=== PATIENT | male | born 1950 | race Caucasian/White ===

== ENCOUNTER 2019-02-12 19:22 | Emergency (ER) | payer MEDICARE, BC ==
--- NOTE | 2019-02-12 19:36 | EDM.PDOC ---
ED HPI GENERAL MEDICAL PROBLEM - General Chief Complaint: Cardiovascular Problem Stated Complaint: HEART BEAT IRREGULAR Time Seen by Provider: 02/12/19 19:31 Source of Information: Reports: Patient, RN Notes Reviewed History Limitations: Reports: No Limitations - History of Present Illness INITIAL COMMENTS - FREE TEXT/NARRATIVE: Patient is a 68-year-old male who presents to the ED for feelings of irregular heartbeat. The patient notes this has been going on for around one month now, he notes that he was evaluated in the [facility] one week, and had EKG done and demonstrated no acute ischemia or abnormalities at that time. He states this has been intermittent, and not constant. He states last night he had he had feelings of his heart fluttering in his chest, off and on for 5 hours last night. He notes a few "hard pounds" in his chest that he was quite aware of. He states that these palpitations relieved themselves, he does not take any actions to try to relieve them himself. He notes he does get sweaty at times with these episodes, and does feel some shortness of breath. He states he feels some mild chest discomfort with these however he is not having any pain. He notes that he feels a sense of impending doom, but does not have any feelings of an elephant sitting on his chest. The patient notes that he does have increased anxiety in his life about retiring. He did take a regular Brennan aspirin last night for management of this, he did not seek evaluation last night for this. The patient notes that he had an episode again today, so they brought him to the ER for evaluation. Of note he states that the provider that saw him one week ago is ordering an event monitor to be placed for 1 month to evaluate for arrhythmia. Patient states he drinks 1 cup of coffee per day, he used to smoke and chew tobacco but he has been quit for 30 years, and he states he is very little alcohol on a very rare basis. He takes losartan 25 mg daily. The patient denies any sort of history of MIs or stents that he has had , but the relates he has a positive family history and his father and his brother. - Related Data Allergies Allergy/AdvReac Type Severity Reaction Status Date / Time No Known Allergies Allergy Verified 02/12/19 19:32 Home Meds: Home Meds LORazepam 0.5 mg PO Q4H PRN #12 tab 02/12/19 [Rx] Losartan [Cozaar] 25 mg PO DAILY 02/12/19 [History] Pumpkin Seed Oil/Saw Pittsford [Saw [place]ford 160 mg Softgel] 160 mg PO DAILY 07/29 [History] ED ROS GENERAL - Review of Systems Review Of Systems: See Below Constitutional: Reports: Diaphoresis (with episodes). Denies: Fever, Chills, Malaise HEENT: Reports: No Symptoms Respiratory: Reports: Shortness of Breath (with episodes) Cardiovascular: Reports: Chest Pain (chest discomfort), Blood Pressure Problem ( hx/o high BP), Palpitations. Denies: Dyspnea on Exertion, Lightheadedness, Syncope Endocrine: Reports: No Symptoms GI/Abdominal: Denies: Nausea, Vomiting : Reports: No Symptoms Musculoskeletal: Reports: No Symptoms Skin: Reports: No Symptoms Neurological: Reports: No Symptoms Psychiatric: Reports: No Symptoms Hematologic/Lymphatic: Reports: No Symptoms ED EXAM, GENERAL - Physical Exam Exam: See Below Exam Limited By: No Limitations General Appearance: Alert, WD/WN, No Apparent Distress Throat/Mouth: Normal Inspection, Normal Lips, Normal Teeth, Normal Gums, Normal Oropharynx, Normal Voice, No Airway Compromise Head: Atraumatic, Normocephalic Neck: Normal Inspection Respiratory/Chest: No Respiratory Distress, Lungs Clear, Normal Breath Sounds, No Accessory Muscle Use, Chest Non-Tender Cardiovascular: Normal Peripheral Pulses, Regular Rate, Rhythm, No Murmur Peripheral Pulses: 3+: Radial (L), Radial (R) GI/Abdominal: Normal Bowel Sounds, Soft, Non-Tender, No Distention, No Mass Extremities: Normal Inspection, Normal Capillary Refill Neurological: Alert, Oriented, Normal Cognition, No Motor/Sensory Deficits Psychiatric: Normal Affect, Normal Mood Skin Exam: Warm, Dry, Intact, Normal Color, No Rash EKG INTERPRETATION EKG Date: 02/12/19 Time: 19:43 Rhythm: NSR Rate (Beats/Min): 87 [place]ble: Normal P-Wave: Present QRS: Normal ST-T: Normal QT: Normal Comparison: NA - No Prior EKG EKG Interpretation Comments: Reviewed by myself and Dr. Paco Monzon. No acute arrhythmia or ischemia appreciated. Course - Vital Signs Last Recorded V/S: Last Vital Signs Temp 97.4 F 02/12/19 19:28 Pulse 91 02/12/19 19:28 Resp 18 02/12/19 19:28 BP 173/89 H 02/12/19 19:28 Pulse Ox 99 02/12/19 19:28 - Orders/Labs/Meds Orders: Active Orders 24 hr Category Date Time Status EKG Documentation Completion [RC] STAT Care 02/12/19 19:34 Ordered Chest 1V Frontal [CR] Stat Exams 02/12/19 19:34 Ordered Labs: Laboratory Tests 02/12/19 02/12/19 02/12/19 Range/Units 19:49 19:49 19:49 WBC 6.74 (4.23-9.07) K/mm3 RBC 4.87 (4.63-6.08) M/mm3 Hgb 14.7 (13.7-17.5) gm/dl Hct 42.4 (40.1-51.0) % MCV 87.1 (79.0-92.2) fl MCH 30.2 (25.7-32.2) pg MCHC 34.7 (32.2-35.5) g/dl RDW Std Deviation 45.7 H (35.1-43.9) fL Plt Count 201 (163-337) K/mm3 MPV 10.8 (9.4-12.3) fl Neutrophils % (Manual) 57 (40-60) % Band Neutrophils % 1 (0-10) % Lymphocytes % (Manual) 35 (20-40) % Atypical Lymphs % 0 % Monocytes % (Manual) 5 (2-10) % Eosinophils % (Manual) 2 (0.8-7.0) % Basophils % (Manual) 0 L (0.2-1.2) Platelet Estimate Adequate RBC Morph Comment Normal PT 10.5 (9.7-12.0) SECONDS INR 0.96 APTT 27 (22-31) SECONDS Sodium 141 (136-145) mEq/L Potassium 4.0 (3.5-5.1) mEq/L Chloride 106 (98-107) mEq/L Carbon Dioxide 26 (21-32) mEq/L Anion Gap 13.0 (5-15) BUN 30 H (7-18) mg/dL Creatinine 1.0 (0.7-1.3) mg/dL Est Cr Clr Drug Dosing 69.35 mL/min Estimated GFR (MDRD) > 60 (>60) mL/min BUN/Creatinine Ratio 30.0 H (14-18) Glucose 122 H (80-115) mg/dL Calcium 9.3 (8.5-10.1) mg/dL Magnesium 1.9 (1.8-2.4) mg/dl Total Bilirubin 0.3 (0.2-1.0) mg/dL AST 17 (15-37) U/L ALT 51 (16-63) U/L Alkaline Phosphatase 74 (46-116) U/L Troponin I < 0.017 (0.00-0.056) ng/mL NT-Pro-B Natriuret Pep (0-125) pg/mL Total Protein 7.2 (6.4-8.2) g/dl Albumin 3.9 (3.4-5.0) g/dl Globulin 3.3 gm/dL Albumin/Globulin Ratio 1.2 (1-2) 02/12/19 Range/Units 19:49 WBC (4.23-9.07) K/mm3 RBC (4.63-6.08) M/mm3 Hgb (13.7-17.5) gm/dl Hct (40.1-51.0) % MCV (79.0-92.2) fl MCH (25.7-32.2) pg MCHC (32.2-35.5) g/dl RDW Std Deviation (35.1-43.9) fL Plt Count (163-337) K/mm3 MPV (9.4-12.3) fl Neutrophils % (Manual) (40-60) % Band Neutrophils % (0-10) % Lymphocytes % (Manual) (20-40) % Atypical Lymphs % % Monocytes % (Manual) (2-10) % Eosinophils % (Manual) (0.8-7.0) % Basophils % (Manual) (0.2-1.2) Platelet Estimate RBC Morph Comment PT (9.7-12.0) SECONDS INR APTT (22-31) SECONDS Sodium (136-145) mEq/L Potassium (3.5-5.1) mEq/L Chloride (98-107) mEq/L Carbon Dioxide (21-32) mEq/L Anion Gap (5-15) BUN (7-18) mg/dL Creatinine (0.7-1.3) mg/dL Est Cr Clr Drug Dosing mL/min Estimated GFR (MDRD) (>60) mL/min BUN/Creatinine Ratio (14-18) Glucose (80-115) mg/dL Calcium (8.5-10.1) mg/dL Magnesium (1.8-2.4) mg/dl Total Bilirubin (0.2-1.0) mg/dL AST (15-37) U/L ALT (16-63) U/L Alkaline Phosphatase (46-116) U/L Troponin I (0.00-0.056) ng/mL NT-Pro-B Natriuret Pep 32 (0-125) pg/mL Total Protein (6.4-8.2) g/dl Albumin (3.4-5.0) g/dl Globulin gm/dL Albumin/Globulin Ratio (1-2) - Re-Assessments/Exams Free Text/Narrative Re-Assessment/Exam: 02/12/19 19:40 Patient presents to the ED for the evaluation of palpitations. I did order an EKG, and other labs to rule out cardiac ischemia. I did make it noted the patient that it is pertinent he gets the event monitor ordered by [facility], so that he may rule out cardiac arrhythmias. As the patient is not having any sort of arrhythmia at [facility]'s visit. He is understanding of this. He was wondering about the anxiety portion, and if his evaluation is good tonight, I would not mind giving him a few tablets of Ativan for feelings of anxiety. 02/12/19 20:37 Chest x-ray shows no acute abnormalities, this was reviewed by myself and Dr. Washington Monzon. Labs are back, and no acute abnormalities are appreciated at [facility]' s visit. His troponin is negative at this time. Patient will be discharged home with general recommendations and a prescription for 0.5 mg Ativan PO Q4H PRN for anxiety. Departure - Departure Time of Disposition: 20:39 Disposition: Home, Self-Care 01 Condition: Fair Clinical Impression: Heart palpitations Prescriptions: LORazepam 0.5 mg PO Q4H PRN #12 tab PRN Reason: Anxiety Instructions: Palpitations, [id number], Ambulatory Cardiac Monitoring Referrals: PCP,Not In Area [Primary Care Provider] - Forms: ED Department Discharge Additional Instructions: You were evaluated in the ER today for your irregular heart rhythm. Unfortunately you're not experiencing symptoms that tonight ER visit, however your cardiac workup was normal, so this is reassuring. Recommend that you follow up with Hannah Diaz and go forward with the heart monitor that she has already ordered for you, this should help evaluate your heart rhythm 03/12 to see if you are in fact having any sort of arrhythmias. You were given a few tablets of Ativan, 0.5 mg, please take 1 tab PO Q4H PRN for feelings of anxiety. If this does help relieve some of your feelings, recommend that you follow up with your primary care physician for continuation of this medication. You may continue to take low-dose aspirin daily for general heart health. If your heart arrhythmia should board turner to be atrial fibrillation, this would help to thin the blood and potentially guard against clots, and possibly reduce your risk for any sequelae that may develop from this. Please return to the ED if your symptoms change or worsen. - My Orders Last 24 Hours: My Active Orders 02/12/19 19:34 EKG Documentation Completion [RC] STAT Chest 1V Frontal [CR] Stat - Assessment/Plan Last 24 Hours: My Active Orders 02/12/19 19:34 EKG Documentation Completion [RC] STAT Chest 1V Frontal [CR] Stat
--- NOTE | 2019-02-13 06:51 | CR ---
Chest: Portable view of the chest was obtained. Comparison: No prior chest x-ray. Heart size and mediastinum are within normal limits for portable technique. Lungs are clear with no acute parenchymal change. Bony structures are grossly intact. Impression: 1. Nothing acute is appreciated on portable chest x-ray. Diagnostic code #1
== END 2019-02-12 21:00 | disposition home or self-care (01) ==
LOC: JD.ED 19:22
DX: R00.2 Palpitations (principal); I10 Essential (primary) hypertension; Z79.899 Other long term (current) drug therapy; Z87.891 Personal history of nicotine dependence
CPT/HCPCS: 36415; 71045; 71045-26; 80053; 83735; 83880; 84484; 85007; 85027; 85610; 85730; 93005; 99285-25

== ENCOUNTER 2024-04-30 11:32 | Day surgery (SDC) | payer MEDICARE, BC ==
[2024-04-30] MEDS: Polymyxin B/Trimethoprim 10 ML Bottle EYERT SCH (12:21)
[2024-04-30] MEDS: Brimonidine 0.2% Ophth Soln 5 ML Bottle EYERT SCH (12:26)
[2024-04-30] MEDS: Phenylephrine 2.5% Ophth Soln 2 ML Bot EYERT SCH (12:32)
[2024-04-30] MEDS: Tropicamide 1% Ophth Soln 3 ML Bottle EYERT SCH (12:36)
[2024-04-30] MEDS: Tetracaine HCl/PF 0.5% 4 ML Bottle EYEBOTH SCH (13:34)
[2024-04-30] MEDS: Lidocaine 1% PF 2 ML SDV INJECT SCH (14:10)
[2024-04-30] MEDS: Cefuroxime 10 MG/ML SYRINGE EYERT SCH (14:20)
[2024-04-30] MEDS: Pilocarpine 4% Ophth Soln 15 ML Bot EYERT SCH (14:22)
== END 2024-04-30 14:35 | disposition home or self-care (01) ==
LOC: JD.SDS 11:32
PROVIDERS: ATTEND Ophthalmology
DX: H25.811 Combined forms of age-related cataract, right eye (principal); I10 Essential (primary) hypertension; E78.2 Mixed hyperlipidemia; Z87.891 Personal history of nicotine dependence; Z79.899 Other long term (current) drug therapy
CPT/HCPCS: 66984; A9270; J0697; 00142; 99100; J3490; V2632